=== PATIENT | male | born 1990 | race Caucasian/White ===

== ENCOUNTER 2023-09-22 19:43 | Emergency (ER) | payer SELFPAY ==
[2023-09-22 19:52] VITALS: BP 140/102; PULSE 85; RESP 18; TEMP 98.6; BMI 27.5
[2023-09-22 20:28] LABS: HEMATOCRIT 46.3 % (35.4-49); HEMOGLOBIN 15.5 G/dL (11.7-16.9); MCH 30.9 pg (25.7-33.7); MCHC 33.5 g/dl (32.0-35.9); MEAN CELL VOLUME 92.2 fl (80-96); MEAN PLT VOLUME 9.7 fl (7.5-11.1); PLATELET COUNT 193.6 10^3/uL (134-434); RBC 5.02 10^6/uL (4.00-5.60); RDW 13.4 % (11.9-15.9); WHITE BLOOD COUNT 7.2 10^3/uL (4.0-10.8)
[2023-09-22 20:41] LABS: BILIRUBIN,TOTAL 0.6 mg/dl (0.2-1); CALCIUM 9.7 mg/dl (8.5-10.1); CREATININE 1.1 mg/dl (0.6-1.3); POTASSIUM 4.2 mmol/L (3.5-5.1); TOT PROT 7.6 g/dl (6.4-8.2)
[2023-09-22] MEDS: SODIUM CHLORIDE 1,000 ML IV ONE (20:42)
== END 2023-09-22 21:10 | disposition home or self-care (01) ==
LOC: FER 19:43
PROC: 3E0337Z Introduction of Electrolytic and Water Balance Substance into Peripheral Vein, Percutaneous Approach (ICD-10-PCS; principal; 2023-09-22)
DX: R07.89 Other chest pain (principal); R42 Dizziness and giddiness; R11.0 Nausea
CPT/HCPCS: 36415; 80053; 81003; 82550; 82553; 84443; 84484; 85027; 93005; 99284-25